=== PATIENT | female | born 1950 | race Caucasian/White ===

== ENCOUNTER 2018-01-29 07:07 | Day surgery (SDC) | payer MEDICARE ==
[~2018-01-29] VITALS: Ht 167.6 cm; Wt 88.3 kg
[~2018-01-29 07:07] MED LIST: CALCA400CH; CRANBERRY250 MG; Hair, Skin & N1 EACH; Loradamed10 MG; Omeprazole20 M1
[2018-04-28] MEDS ORDERED: VITAMIN D-32000 UNIT (12:59)
== END 2018-01-29 11:10 | disposition home or self-care (01) ==
LOC: ORSCSDS 07:07
PROVIDERS: Podiatrist Foot & Ankle Surgery
PROC: 0QSP04Z Reposition Left Metatarsal with Internal Fixation Device, Open Approach (ICD-10-PCS; principal; 2018-01-29 08:30)
PROC: 0SGQ0ZZ (ICD-10-PCS; principal; 2018-01-29 08:30)
PROC: 0SNQ0ZZ Release Left Toe Phalangeal Joint, Open Approach (ICD-10-PCS; principal; 2018-01-29 08:30)
DX: M20.12 Hallux valgus (acquired), left foot (principal); M20.42 Other hammer toe(s) (acquired), left foot; K21.9 Gastro-esophageal reflux disease without esophagitis; Z87.891 Personal history of nicotine dependence; Z79.899 Other long term (current) drug therapy
CPT/HCPCS: C1713; J0690; J2250; J3010; J7120

== ENCOUNTER 2018-10-01 14:36 | Emergency (ER) | payer MEDICARE ==
[~2018-10-01] VITALS: Ht 165.1 cm; Wt 83.9 kg
[~2018-10-01 14:36] MED LIST changes: +VITAMIN D-32000 UNIT
[2018-10-01 15:06] LABS: BASOPHILS ABSOLUTE AUTO 0.06 K/mm3 (0.00-0.23); BASOPHILS PERCENT AUTO 1 % (0-2); EOSINOPHILS ABSOLUTE AUTO 0.24 K/mm3 (0.00-0.68); EOSINOPHILS PERCENT AUTO 3 % (0-6); Hematocrit 41.7 % (33.0-51.0); Hemoglobin 13.3 g/dL (11.5-16.0); IMMATURE GRAN ABSOLUTE AUTO 0.03 K/mm3 (0.00-0.10); IMMATURE GRAN PERCENT AUTO 0 % (0-1); LYMPHOCYTES ABSOLUTE AUTO 3.31 K/mm3 (0.84-5.20); LYMPHOCYTES PERCENT AUTO 42 % (21-46); MONOCYTES PERCENT AUTO 8 % (4-13); Mean Corpuscular HGB 29.2 pg (26.0-34.0); Mean Corpuscular HGB Conc 31.9 g/dL (31.5-36.5); Mean Corpuscular Volume 91 fL (80-100); Mean Platelet Volume 10.2 fL (9.1-12.4); NEUTROPHILS ABSOLUTE AUTO 3.64 K/mm3 (1.96-9.15); NEUTROPHILS PERCENT AUTO 46 % (41-73); Platelet Count 290 K/mm3 (150-400); RDW Coefficient Variation 11.9 % (11.7-14.2); RDW Standard Deviation 40.5 fL (35.1-46.3); Red Blood Cell Count 4.56 M/mm3 (3.80-5.20); White Blood Cell Count 7.88 K/mm3 (4.00-11.30)
[2018-10-01 15:30] LABS: Alanine Aminotransfer (ALT/SGP 20 U/L (12-78); Albumin, Blood 3.6 g/dL (3.4-5.0); Albumin/Globulin Ratio 0.9 (0.8-1.8); Alk Phos 66 U/L (50-136); Anion Gap 10 mmol/L (6-16); Aspartate Aminotrans (AST/SGOT 23 U/L (12-37); Bilirubin, Total 0.3 mg/dL (0.1-1.0); Blood Urea Nitrogen 13 mg/dL (8-24); CO2, Blood 24 mmol/L (21-32); Calcium, Blood 8.8 mg/dL (8.5-10.1); Chloride, Blood 105 mmol/L (98-108); Globulin, Blood 4.1 g/dL (2.2-4.0); Glomerular Filtration Rate 58 (60-); Glucose, Blood 135 mg/dL (70-99); Potassium, Blood 3.8 mmol/L (3.5-5.5); Sodium, Blood 139 mmol/L (136-145); Total Protein, Blood 7.7 g/dL (6.4-8.2); Troponin I <0.015 ng/mL (0.000-0.040)
== END 2018-10-01 16:20 | disposition home or self-care (01) ==
LOC: ER 14:36
PROVIDERS: Emergency Medicine
DX: R07.9 Chest pain, unspecified (principal); Z87.891 Personal history of nicotine dependence; Z79.899 Other long term (current) drug therapy
CPT/HCPCS: 36415; 71046; 80053; 83690; 84484; 85025; 93005; 93010; 99285-25

== ENCOUNTER → 2018-11-26 | Outpatient (CLI) | payer MEDICARE ==
[2018-11-27 14:31] LABS: Stool Occult Bld Immuno 1 Positive (NEGATIVE)
== END | disposition home or self-care (01) ==
LOC: LAB SHORT 18:00 → LAB 18:00 → LAB FUT 11-23 13:10
PROVIDERS: Internal Medicine Gastroenterology
DX: K92.1 Melena (principal)
CPT/HCPCS: 82274

== ENCOUNTER 2019-08-19 06:00 | Day surgery (SDC) | payer MEDICARE ==
[~2019-08-19] VITALS: Ht 167 cm; Wt 78.6 kg
[~2019-08-19 06:00] MED LIST changes: +Bacid1 EACH PO; +CALCIUM PO; +FISH OIL PO; +Hair, Skin & N1 EACH PO; +Loratadine10 MG PO; +OMEPRAZOLE20 MG PO; +TURMERIC PO
--- NOTE | 2019-08-19 06:45 | NUR ---
Ambulatory in Day Surgery History, Chart, Medications and Allergies reviewed before start of procedure.Patient confirms NPO status and agrees with scheduled surgery.
--- NOTE | 2019-08-19 10:03 | NUR ---
PRESCRIPTION GIVEN TO PATIENT'S TO DROP AT [facility].
--- NOTE | 2019-08-19 15:18 | NUR ---
SUMMARY OF CARE: PATIENT ASSISTED TO SIDE OF BED TO GO TO BY ERIK Soto RN. UP SITTING UP PATIENT BECAME LIGHTHEADED AND WAS FOUND TO HAVE A B/P OF 60 SYSTOLIC. PATIENT LAID BACK IN BED AND B/P CYCLED AT 5 MIN INCREMENTS UNTIL B/P ISSUE RESOLVED. ADDITIONALLY INITIALLY WOULD DROP TO 89% AT REST, 02 2 L NC APPLIED AND PATIENT WAS WEANED OFF AND TOLERATING REST AT 95%. DR NOTIFIED, NO NEW ORDERS RECEIVED. PATIENT D/C HOME IN STABLE CONDITION IN THE CARE OF HER .
== END 2019-08-19 15:25 | disposition home or self-care (01) ==
LOC: ORSCMMR 06:00 → ORD 07:30 → ORSCMMR 15:25
PROVIDERS: Surgery
PROC: 06BY0ZC Excision of Hemorrhoidal Plexus, Open Approach (ICD-10-PCS; principal; 2019-08-19 07:30)
DX: K64.8 Other hemorrhoids (principal); K64.4 Residual hemorrhoidal skin tags; K21.9 Gastro-esophageal reflux disease without esophagitis; Z87.891 Personal history of nicotine dependence
CPT/HCPCS: 88304; J0330; J2250; J2405; J2704; J3010; J7120

== ENCOUNTER → 2020-07-22 | Outpatient (CLI) | payer MEDICARE ==
[~2020-07-22] MED LIST changes: +ACET325 PO; +ATROPINE PO; +POTCHL20ER PO; +PRED1 PO; +SIME80CH PO; +TRAM50 PO; +[UNRECOGNIZED DRUG - OTHER] PO
[2020-07-22 18:19] LABS: Adenovirus F 40/41 Not Detected (NOT DETECT); Astrovirus Not Detected (NOT DETECT); Campylobacter Sp Not Detected (NOT DETECT); Cryptosporidium Not Detected (NOT DETECT); Cyclospora Cayetanensis Not Detected (NOT DETECT); E. Coli O157 Not Detected (NOT DETECT); Entamoeba Histolytica Not Detected (NOT DETECT); Enteroaggregative E. coli-EAEC Not Detected (NOT DETECT); Enteropathogenic E. coli-EPEC Not Detected (NOT DETECT); Enterotoxigenic E. coli-ETEC Not Detected (NOT DETECT); Giardia Lamblia Not Detected (NOT DETECT); Norovirus GI/GII Not Detected (NOT DETECT); Plesiomonas Shigelloides Not Detected (NOT DETECT); Rotavirus A Not Detected (NOT DETECT); Salmonella Sp Not Detected (NOT DETECT); Sapovirus Not Detected (NOT DETECT); Shiga Toxin-prod E. coli-STEC Not Detected (NOT DETECT); Shigella/Enteroin E. coli-EIEC Not Detected (NOT DETECT); Vibrio Cholerae Not Detected (NOT DETECT); Vibrio Sp Not Detected (NOT DETECT); Yersinia Enterocolitica Not Detected (NOT DETECT)
== END ==
LOC: LAB EV 13:36 → LAB SHORT 13:36
PROVIDERS: Student in an Organized Health Care Education/Training Program
DX: R19.7 Diarrhea, unspecified (principal)
CPT/HCPCS: 0097U; 83631

== ENCOUNTER 2020-07-24 08:55 | Emergency (ER) | payer MEDICARE ==
[~2020-07-24] VITALS: Ht 165.1 cm; Wt 78.0 kg
[~2020-07-24 08:55] MED LIST changes: -ACET325 PO; -ATROPINE PO; -OMEPRAZOLE20 MG PO; -POTCHL20ER PO; -PRED1 PO; -SIME80CH PO; -TRAM50 PO; -[UNRECOGNIZED DRUG - OTHER] PO
[2020-07-24 10:05] LABS: Hematocrit 40.1 % (33.0-51.0); Hemoglobin 12.7 g/dL (11.5-16.0); Mean Corpuscular HGB 26.2 pg (26.0-34.0); Mean Corpuscular HGB Conc 31.7 g/dL (31.5-36.5); Mean Corpuscular Volume 83 fL (80-100); Mean Platelet Volume 9.2 fL (9.1-12.4); Platelet Count 312 K/mm3 (150-400); RDW Coefficient Variation 13.2 % (11.7-14.2); RDW Standard Deviation 39.7 fL (35.1-46.3); Red Blood Cell Count 4.85 M/mm3 (3.80-5.20); White Blood Cell Count 6.66 K/mm3 (4.00-11.30)
[2020-07-24 10:32] LABS: Alanine Aminotransfer (ALT/SGP 19 U/L (12-78); Albumin, Blood 1.9 g/dL (3.4-5.0); Albumin/Globulin Ratio 0.4 (0.8-1.8); Alk Phos 83 U/L (50-136); Anion Gap 12 mmol/L (6-16); Aspartate Aminotrans (AST/SGOT 15 U/L (12-37); Bilirubin, Total 0.8 mg/dL (0.1-1.0); Blood Urea Nitrogen 12 mg/dL (8-24); Bun/Creatinine Ratio 13.4 (12.0-20.0); CO2, Blood 23 mmol/L (21-32); Calcium, Blood 8.3 mg/dL (8.5-10.1); Chloride, Blood 96 mmol/L (98-108); Globulin, Blood 4.6 g/dL (2.2-4.0); Glomerular Filtration Rate >60 (60-); Glucose, Blood 122 mg/dL (70-99); Potassium, Blood 2.6 mmol/L (3.5-5.5); Sodium, Blood 131 mmol/L (136-145); Total Protein, Blood 6.5 g/dL (6.4-8.2)
[2020-07-24 10:41] LABS: Source, Urine Clean Catch
[2020-07-24 10:46] LABS: BAND PERCENT MAN 29 % (0-8); BASOPHILS PERCENT MAN 0 % (0-2); EOSINOPHILS ABSOLUTE MAN 0.13 K/mm3 (0.00-0.68); EOSINOPHILS PERCENT MAN 2 % (0-6); LYMPHOCYTES ABSOLUTE MAN 0.99 K/mm3 (0.84-5.20); LYMPHOCYTES PERCENT MAN 15 % (21-46); METAMYELOCYTE ABSOLUTE MAN 0.13 K/mm3 (0.00-0.00); METAMYELOCYTE PERCENT MAN 2 % (0-0); MONOCYTES ABSOLUTE MAN 0.46 K/mm3 (0.16-1.47); MONOCYTES PERCENT MAN 7 % (4-13); NEUTROPHILS ABSOLUTE MAN 4.92 K/mm3 (1.96-9.15); SEG NEUTROPHILS PERCENT MAN 45 % (41-73); TOTAL CELLS COUNTED 100
[2020-07-24 10:54] LABS: Blood, Urine 1+ (Neg); Glucose Qualitative, Urine Neg (Neg); Ketones, Urine 3+ (Neg); Leukocyte Esterase, Urine 1+ (Neg); Nitrite, Urine Neg (Neg); Protein, Urine 2+ (Neg); Specific Gravity, Urine 1.015 (1.003-1.022); Urobilinogen, Urine 1+ (Normal)
[2020-07-24 11:01] LABS: Appearance, Urine Clear (Clear); Bilirubin, Urine 1+ (Neg); Color, Urine Amber (P-Yellow)
[2020-07-24 11:06] LABS: Amorphous Light (0-Heavy); Bacteria Mod /hpf; Squamous Epithelial Cells Few /hpf (Few)
[2020-07-24 11:07] LABS: WBC Cast 0-2 /lpf (0)
== END 2020-07-24 14:48 | disposition home or self-care (01) ==
LOC: ER 08:55
PROVIDERS: Emergency Medicine
DX: R19.7 Diarrhea, unspecified (principal); E86.0 Dehydration; E87.6 Hypokalemia; R10.84 Generalized abdominal pain; N18.2 Chronic kidney disease, stage 2 (mild); Z88.0 Allergy status to penicillin; Z88.5 Allergy status to narcotic agent; Z91.02 Food additives allergy status; Z79.899 Other long term (current) drug therapy; Z87.891 Personal history of nicotine dependence
CPT/HCPCS: 36415; 80053; 81001; 83690; 85025; 87077; 87086; 96361; 96365; 96366; 99284-25; A9270; J3480; J7030

== ENCOUNTER 2020-07-27 15:35 | Inpatient (IN) | payer MEDICARE ==
[~2020-07-27] VITALS: Ht 165.1 cm; Wt 78.0 kg
[2020-07-27 16:02] LABS: Hematocrit 36.9 % (33.0-51.0); Mean Corpuscular HGB 25.9 pg (26.0-34.0); Mean Corpuscular HGB Conc 32.5 g/dL (31.5-36.5); Mean Corpuscular Volume 80 fL (80-100); Mean Platelet Volume 8.9 fL (9.1-12.4); Platelet Count 367 K/mm3 (150-400); RDW Coefficient Variation 13.4 % (11.7-14.2); RDW Standard Deviation 38.4 fL (35.1-46.3); Red Blood Cell Count 4.64 M/mm3 (3.80-5.20); White Blood Cell Count 9.75 K/mm3 (4.00-11.30)
[2020-07-27 16:14] LABS: Source, Urine Clean Catch
[2020-07-27 16:18] LABS: Bilirubin, Urine Neg (Neg); Blood, Urine 1+ (Neg); Glucose Qualitative, Urine Neg (Neg); Ketones, Urine Neg (Neg); Leukocyte Esterase, Urine 1+ (Neg); Nitrite, Urine Neg (Neg); Protein, Urine 2+ (Neg); Urobilinogen, Urine 1+ (Normal)
[2020-07-27 16:19] LABS: Alanine Aminotransfer (ALT/SGP 19 U/L (12-78); Albumin, Blood 1.6 g/dL (3.4-5.0); Albumin/Globulin Ratio 0.3 (0.8-1.8); Alk Phos 93 U/L (50-136); Anion Gap 8 mmol/L (6-16); Aspartate Aminotrans (AST/SGOT 19 U/L (12-37); Bilirubin, Total 0.5 mg/dL (0.1-1.0); Blood Urea Nitrogen 9 mg/dL (8-24); Bun/Creatinine Ratio 15.4 (12.0-20.0); CO2, Blood 25 mmol/L (21-32); Calcium, Blood 8.3 mg/dL (8.5-10.1); Chloride, Blood 96 mmol/L (98-108); Creatinine, Blood 0.58 mg/dL (0.40-1.00); Globulin, Blood 4.6 g/dL (2.2-4.0); Glomerular Filtration Rate >60 (60-); Glucose, Blood 130 mg/dL (70-99); Magnesium, Blood 1.9 mg/dL (1.6-2.4); Phosphorus, Blood 1.6 mg/dL (2.5-4.9); Potassium, Blood 2.7 mmol/L (3.5-5.5); Sodium, Blood 129 mmol/L (136-145); Total Protein, Blood 6.2 g/dL (6.4-8.2)
[2020-07-27 16:26] LABS: BAND PERCENT MAN 19 % (0-8); BASOPHILS PERCENT MAN 0 % (0-2); EOSINOPHILS ABSOLUTE MAN 0.39 K/mm3 (0.00-0.68); EOSINOPHILS PERCENT MAN 4 % (0-6); LYMPHOCYTES ABSOLUTE MAN 1.46 K/mm3 (0.84-5.20); LYMPHOCYTES PERCENT MAN 15 % (21-46); MONOCYTES ABSOLUTE MAN 0.29 K/mm3 (0.16-1.47); MONOCYTES PERCENT MAN 3 % (4-13); SEG NEUTROPHILS PERCENT MAN 59 % (41-73); TOTAL CELLS COUNTED 100
[2020-07-27 16:29] LABS: Appearance, Urine Clear (Clear); Color, Urine Yellow (P-Yellow)
[2020-07-27 16:31] LABS: Bacteria Few /hpf; Red Blood Cells, Urine 0-2 /hpf (0-2); Squamous Epithelial Cells Few /hpf (Few)
[2020-07-27 16:41] LABS: Thyroid Stimulating Hormone 2.67 uIU/mL (0.360-4.800); Triiodothyronine, Free 0.87 pg/mL (2.18-3.98)
[2020-07-27] MEDS ORDERED: OMEPRAZOLE20 MG PO (17:14)
[2020-07-27] MEDS ORDERED: [UNRECOGNIZED DRUG - OTHER] PO (17:18)
[2020-07-27] MEDS ORDERED: ATROPINE PO (17:18)
--- NOTE | 2020-07-27 20:12 | NUR ---
ADMIT NOTE 70 YR OLD FEMALE ADMITTED TO UNIT FROM THE ED WITH DIARRHEA. IVF INFUSING. ANTIBIOTICS ORDERED - MED TELE SINUS RHYTHM 91. ORIENTED TO USE OF CALL LIGHT. CALL LIGHT IN REACH. RAILS UP X 3
--- NOTE | 2020-07-27 21:30 | NUR ---
LACTIC ACID CALLED TO [employer] BASIS CONSULTANT - SEE ORDERS
--- NOTE | 2020-07-27 21:57 | NUR ---
LACTIC ACID ELEVATED, LAB TECHNICIAN NOTIFIED, NS NOW AT BOLUS RATE. CALL LIGHT IN REACH
[2020-07-28 00:57] LABS: Anion Gap 8 mmol/L (6-16); Blood Urea Nitrogen 9 mg/dL (8-24); CO2, Blood 25 mmol/L (21-32); Calcium, Blood 7.9 mg/dL (8.5-10.1); Chloride, Blood 98 mmol/L (98-108); Creatinine, Blood 0.75 mg/dL (0.40-1.00); Glomerular Filtration Rate >60 (60-); Glucose, Blood 134 mg/dL (70-99); Potassium, Blood 2.6 mmol/L (3.5-5.5); Sodium, Blood 131 mmol/L (136-145)
--- NOTE | 2020-07-28 01:29 | NUR ---
LACTIC ACID TRENDING DOWN. CHARGE NURSE NOTIFIED. WILL CONTINUE TO MONITOR
--- NOTE | 2020-07-28 01:36 | NUR ---
PTS SISTER "KATIE" CALLED RE CONDITION/UPDATE. PT ALLOWED INFO TRANSFER - WILL CALL BACK AROUND 10 AM. # [phone].
[2020-07-28 04:47] LABS: Hematocrit 30.4 % (33.0-51.0); Hemoglobin 9.7 g/dL (11.5-16.0); Mean Corpuscular HGB 25.7 pg (26.0-34.0); Mean Corpuscular HGB Conc 31.9 g/dL (31.5-36.5); Mean Corpuscular Volume 81 fL (80-100); Mean Platelet Volume 9.4 fL (9.1-12.4); Platelet Count 261 K/mm3 (150-400); RDW Coefficient Variation 13.3 % (11.7-14.2); RDW Standard Deviation 39.7 fL (35.1-46.3); Red Blood Cell Count 3.77 M/mm3 (3.80-5.20); White Blood Cell Count 7.17 K/mm3 (4.00-11.30)
[2020-07-28 05:05] LABS: Anion Gap 10 mmol/L (6-16); Blood Urea Nitrogen 8 mg/dL (8-24); Bun/Creatinine Ratio 11.3 (12.0-20.0); CO2, Blood 23 mmol/L (21-32); Calcium, Blood 7.5 mg/dL (8.5-10.1); Chloride, Blood 99 mmol/L (98-108); Creatinine, Blood 0.71 mg/dL (0.40-1.00); Glomerular Filtration Rate >60 (60-); Glucose, Blood 123 mg/dL (70-99); Magnesium, Blood 1.8 mg/dL (1.6-2.4); Phosphorus, Blood 2.6 mg/dL (2.5-4.9); Potassium, Blood 2.8 mmol/L (3.5-5.5); Sodium, Blood 132 mmol/L (136-145)
[2020-07-28 05:09] LABS: BAND PERCENT MAN 37 % (0-8); BASOPHILS PERCENT MAN 0 % (0-2); EOSINOPHILS ABSOLUTE MAN 0.07 K/mm3 (0.00-0.68); EOSINOPHILS PERCENT MAN 1 % (0-6); LYMPHOCYTES ABSOLUTE MAN 0.21 K/mm3 (0.84-5.20); LYMPHOCYTES PERCENT MAN 3 % (21-46); MONOCYTES ABSOLUTE MAN 0.35 K/mm3 (0.16-1.47); MONOCYTES PERCENT MAN 5 % (4-13); MYELOCYTE ABSOLUTE MAN 0.07 K/mm3 (0.00-0.00); MYELOCYTE PERCENT MAN 1 % (0-0); NEUTROPHILS ABSOLUTE MAN 6.45 K/mm3 (1.96-9.15); SEG NEUTROPHILS PERCENT MAN 53 % (41-73); TOTAL CELLS COUNTED 100
--- NOTE | 2020-07-28 18:32 | NUR ---
SHIFT SUMMARY PT A/O X4; PLEASANT AND COOPERATIVE. PT VERY DROWSY FOR MOST OF THE DAY AND HAS REQUESTED TO SLEEP. SHE IS A SBA TO THE BATHROOM AND HAS HAD MANY LIQUID STOOLS TODAY. COLONOSCOPY SCHEDULED FOR TOMORROW. PT IS NPO AT MIDNIGHT. BOWEL PREP STARTED AT 1800. PT HAS ALSO BEEN GETTING IV POTASSIUM TODAY. IV POTASSIUM RUNNING AT SLOWER RATE DUE TO VEIN IRRITATION. VSS; WILL CONTINUE TO MONITOR.
--- NOTE | 2020-07-29 04:39 | NUR ---
AUTOMATION TESTER SUMMARY PT ALERT AND ORIENTED, COOPERATIVE WITH CARE. USES CALL LIGHT APPROPRIATELY. UP TO BSC WITH STANDBY ASSIST. SHE HAS BEEN DRINKING GOLYTELY T/O SHIFT AND WAS UNABLE TO GET MUCH SLEEP. RAPID COVID TEST WAS COMPLETED FOR PENDING COLONOSCOPY TODAY, WHICH WAS NEGATIVE. NO ACUTE DISTRESS NOTED. VSS. BED IN LOWEST POSITION WITH CALL LIGHT IN REACH. WILL CONTINUE TO MONITOR AND REPORT TO ONCOMING RN.
--- NOTE | 2020-07-29 11:39 | NUR ---
Patient states colon prep results clear. History, Chart, Medications and Allergies reviewed before start of procedure. Lungs clear T/O to Auscultation. Patient confirms NPO status and agrees with scheduled surgery. Pre-Op teaching done. Pt verbalizes understanding.
--- NOTE | 2020-07-29 11:58 | NUR ---
07/29/20 1158 Deepti Mancera History, Chart, Medications and Allergies reviewed before start of procedure.PATIENT DETERMINED TO BE ASA APPROPRIATE FOR PROPOFOL SEDATION PRIOR TO START OF PROCEDURE BY .MONITOR INTACT WITH CONTINUOUS PULSE OXIMETRY AND INTERMITTENT BP.3-LEAD EKG REVIEWED WITH PHYSICIAN PRIOR TO START OF PROCEDURE.O2 VIA N/C INTACT THROUGHOUT SEDATION/PROCEDURE.
--- NOTE | 2020-07-29 19:22 | NUR ---
SHIFT SUMAMRY: NO ACUTE CHANGES TO REPORT THIS SHIFT. PT A&O; CALM AND COOPERATIVE WITH CARE. COLONOSCOPY THIS SHIFT; PT TOLERATED WELL; IV STEROIDS STARTED; DIET ADVANCED TO FULL LIQUID. TELE IN PLACE; SR IN 90s. IV ABX D/C'd; NS + 20 MEQ KCL CONTINUING. REPORT GIVEN TO ONCOMING RN.
--- NOTE | 2020-07-29 23:44 | NUR ---
RN TO RN PATIENT TRANSFER. ROOM 353 TO 335. REPORT TAKEN FROM RAFAEL MEJIA. PATIENT TRANSFER COMPLETE.
--- NOTE | 2020-07-30 03:54 | NUR ---
SHIFT SUMMARY PATIENT TRANSFER FROM ROOM 353 AND HAD NO ACUTE CHANGES OBSERVED. AXO X3 AND SBA TO BSC. PIV REMAINS INTACT. KCL 20 MEQ INFUSING AT 125 mL/HR. SAFETY ASSOCIATE REPORTS NSR 85. VSS/AFEBRILE. DENIES PAIN, SOB, AND N/V. [place] PRECAUTIONS TO R/O TB. PATIENT MOSTLY SLEEPING SINCE TRANSFER. CALL LIGHT IN REACH. BED IN LOWEST POSITION. WILL CONTINUE TO MONITOR UNTIL DAY SHIFT NURSE ASSUMES CARE.
[2020-07-30 11:33] LABS: Hematocrit 30.5 % (33.0-51.0); Hemoglobin 9.8 g/dL (11.5-16.0); Mean Corpuscular HGB 26.2 pg (26.0-34.0); Mean Corpuscular HGB Conc 32.1 g/dL (31.5-36.5); Mean Corpuscular Volume 82 fL (80-100); Mean Platelet Volume 9.6 fL (9.1-12.4); Platelet Count 219 K/mm3 (150-400); RDW Coefficient Variation 13.6 % (11.7-14.2); Red Blood Cell Count 3.74 M/mm3 (3.80-5.20)
[2020-07-30 12:00] LABS: Alanine Aminotransfer (ALT/SGP 17 U/L (12-78); Albumin, Blood 1.4 g/dL (3.4-5.0); Albumin/Globulin Ratio 0.4 (0.8-1.8); Alk Phos 70 U/L (50-136); Anion Gap 7 mmol/L (6-16); Aspartate Aminotrans (AST/SGOT 11 U/L (12-37); BAND PERCENT MAN 9 % (0-8); BASOPHILS PERCENT MAN 0 % (0-2); Bilirubin, Total 0.3 mg/dL (0.1-1.0); Blood Urea Nitrogen 6 mg/dL (8-24); Bun/Creatinine Ratio 9.3 (12.0-20.0); CO2, Blood 20 mmol/L (21-32); Calcium, Blood 7.7 mg/dL (8.5-10.1); Chloride, Blood 109 mmol/L (98-108); Creatinine, Blood 0.64 mg/dL (0.40-1.00); EOSINOPHILS PERCENT MAN 0 % (0-6); Globulin, Blood 3.7 g/dL (2.2-4.0); Glomerular Filtration Rate >60 (60-); Glucose, Blood 222 mg/dL (70-99); LYMPHOCYTES ABSOLUTE MAN 0.68 K/mm3 (0.84-5.20); LYMPHOCYTES PERCENT MAN 19 % (21-46); MONOCYTES ABSOLUTE MAN 0.18 K/mm3 (0.16-1.47); MONOCYTES PERCENT MAN 5 % (4-13); NEUTROPHILS ABSOLUTE MAN 2.73 K/mm3 (1.96-9.15); Potassium, Blood 3.3 mmol/L (3.5-5.5); SEG NEUTROPHILS PERCENT MAN 67 % (41-73); Sodium, Blood 136 mmol/L (136-145); TOTAL CELLS COUNTED 100; Total Protein, Blood 5.1 g/dL (6.4-8.2)
--- NOTE | 2020-07-30 16:28 | NUR ---
SHIFT SUMMARY PATIENT IS ALERT AND ORIENTED, INDEPENDENT IN THE ROOM. PATIENT HAD ORAL POTASSIUM AND HAS BEEN STARTED ON GLIPIZIDE WELL NOW HAS BLOOD SUGARS ORDERED. SHE DENIES ANY CURRENT CONCERN MINUS THE PAIN IN HER BELLY. SHE STATES THAT THE TRAMADOL HELPS WITH THE ABDOMINAL CRAMPING. SHE ATE A SOFT LUNCH AND HAD NO NAUSEA OR VOMITING.
--- NOTE | 2020-07-31 00:16 | NUR ---
DR CARTWRIGHT called about low blood glucose with poor oral intake. She stops IV fluid & glucotrol & rx give 1/2 amp D50. PT taking some oral but declined to continue with much & blood glucose only 67.
--- NOTE | 2020-07-31 03:24 | NUR ---
PT continues with loose stools pink tinged, new dx IBS ulcerative colitis after colonoscopy. PT on IV steroids & MD started glucophage but had hypoglycemia with oral intake raising BG to 71 then drifting back down. BG recheck 57 2nd /2 amp d50 given & notified DR Granado. Alert up indep in room with steady gait. On tele monitor NSR with PVCS. DR Granado orders 1 amp D50 Glucophage has been DC. Taking oral puddings drank less than 50% ensure. Will recheck blood glucose.
[2020-07-31 06:20] LABS: Anion Gap 5 mmol/L (6-16); Blood Urea Nitrogen 7 mg/dL (8-24); Bun/Creatinine Ratio 12.4 (12.0-20.0); CO2, Blood 22 mmol/L (21-32); Calcium, Blood 7.8 mg/dL (8.5-10.1); Chloride, Blood 107 mmol/L (98-108); Creatinine, Blood 0.56 mg/dL (0.40-1.00); Glomerular Filtration Rate >60 (60-); Glucose, Blood 103 mg/dL (70-99); Potassium, Blood 3.9 mmol/L (3.5-5.5); Sodium, Blood 134 mmol/L (136-145)
[2020-07-31 08:07] LABS: HBSAG SCREEN Negative (Negative)
[2020-07-31] MEDS ORDERED: ACET325 PO (13:32)
[2020-07-31] MEDS ORDERED: POTCHL20ER PO (13:33)
[2020-07-31] MEDS ORDERED: SIME80CH PO (13:35)
[2020-07-31] MEDS ORDERED: TRAM50 PO (13:36)
[2020-07-31] MEDS ORDERED: PRED1 PO (13:40)
--- NOTE | 2020-07-31 14:37 | NUR ---
DISCHARGE DISCHARGED HOME WITH . AND PT VERBALIZED UNDERSTANDING OF DISCHARGE INSTRUCTIONS AND FOLLOW-UP APPOINTMENTS. TEACHBACK METHOD UTILIZED AND ALL QUESTIONS ANSWERED. ALL PERSONAL BELONGINGS IN PT/ POSSESSION AT TIME OF DISCHARGE. RX'S FAXED TO [facility] CHOICE, [facility].
== END 2020-07-31 14:26 | disposition home or self-care (01) | DRG 385 ==
LOC: ER 15:35 → MEDS 19:35 → ENPENDDIS 07-30 15:33 → MEDS 07-31 14:26
PROVIDERS: Emergency Medicine; Internal Medicine; Nurse Practitioner Acute Care; Physician Assistant; Student in an Organized Health Care Education/Training Program; ADMIT Internal Medicine
PROC: 0DBE8ZX Excision of Large Intestine, Via Natural or Artificial Opening Endoscopic, Diagnostic (ICD-10-PCS; principal; 2020-07-29 10:00)
DX: K51.90 Ulcerative colitis, unspecified, without complications (principal); E43 Unspecified severe protein-calorie malnutrition; D62 Acute posthemorrhagic anemia; E87.1 Hypo-osmolality and hyponatremia; E87.2 Acidosis; E87.6 Hypokalemia; E83.39 Other disorders of phosphorus metabolism; K21.9 Gastro-esophageal reflux disease without esophagitis; E86.0 Dehydration; I95.9 Hypotension, unspecified; E66.9 Obesity, unspecified; Z68.28 Body mass index [BMI] 28.0-28.9, adult; R73.9 Hyperglycemia, unspecified; T38.0X5A Adverse effect of glucocorticoids and synthetic analogues, initial encounter; Y92.230 Patient room in hospital as the place of occurrence of the external cause; R82.81 Pyuria; E86.9 Volume depletion, unspecified
CPT/HCPCS: 36415; 74176; 80048; 80053; 81001; 82947; 83605; 83690; 83735; 84100; 84132; 84443; 84481; 85025; 85651; 86140; 86317; 87015; 87040; 87045; 87046; 87086; 87177; 87205; 87209; 87340; 87899; 88305; 96361; 96365; 96366; 99284-25; A9270; A9270-GY; J0744; J1650; J2704; J2920; J3480; J7030; J7060; J7120; U0002

== ENCOUNTER 2021-01-26 09:43 | Day surgery (SDC) | payer MEDICARE ==
[~2021-01-26] VITALS: Ht 165.1 cm; Wt 79.2 kg
[~2021-01-26 09:43] MED LIST changes: +ACET325 PO; +ACIDOPHILUS PR1 EAC2 PO; +ATROPINE PO; +ENTYVIO300 M1 IV; +IMODIUM A-D2 M1 PO; +MESALAMINE PO; +OMEPRAZOLE20 MG PO; +POTCHL20ER PO; +PRED1 PO; +SIME80CH PO; +TRAM50 PO; +[UNRECOGNIZED DRUG - OTHER] PO
--- NOTE | 2021-01-26 10:24 | NUR ---
01/26/21 1024 ADELE NARVAEZ ONE ATTEMPT BY THOMAS IN RH ONE SUCCESSFUL BY THOMAS IN RFA PT TOW
== END 2021-01-26 11:46 | disposition home or self-care (01) ==
LOC: ORSCSDS 09:43
PROVIDERS: Internal Medicine Gastroenterology
PROC: 0DBE8ZX Excision of Large Intestine, Via Natural or Artificial Opening Endoscopic, Diagnostic (ICD-10-PCS; principal; 2021-01-26 11:00)
DX: K51.90 Ulcerative colitis, unspecified, without complications (principal); Z79.899 Other long term (current) drug therapy; K21.9 Gastro-esophageal reflux disease without esophagitis; K57.30 Diverticulosis of large intestine without perforation or abscess without bleeding; K64.1 Second degree hemorrhoids; Z87.891 Personal history of nicotine dependence
CPT/HCPCS: 88305; J2704; J7120

== ENCOUNTER → 2021-08-10 | Outpatient (CLI) | payer MEDICARE ==
[2021-08-10 12:53] LABS: BASOPHILS ABSOLUTE AUTO 0.04 K/mm3 (0.00-0.23); BASOPHILS PERCENT AUTO 0 % (0-2); EOSINOPHILS ABSOLUTE AUTO 0.04 K/mm3 (0.00-0.68); EOSINOPHILS PERCENT AUTO 0 % (0-6); Hematocrit 41.8 % (33.0-51.0); IMMATURE GRAN ABSOLUTE AUTO 0.07 K/mm3 (0.00-0.10); IMMATURE GRAN PERCENT AUTO 1 % (0-1); LYMPHOCYTES ABSOLUTE AUTO 0.89 K/mm3 (0.84-5.20); LYMPHOCYTES PERCENT AUTO 6 % (21-46); MONOCYTES ABSOLUTE AUTO 1.11 K/mm3 (0.16-1.47); MONOCYTES PERCENT AUTO 7 % (4-13); Mean Corpuscular HGB 28.6 pg (26.0-34.0); Mean Corpuscular HGB Conc 33.5 g/dL (31.5-36.5); Mean Corpuscular Volume 85 fL (80-100); Mean Platelet Volume 11.1 fL (9.1-12.4); NEUTROPHILS ABSOLUTE AUTO 13.02 K/mm3 (1.96-9.15); NEUTROPHILS PERCENT AUTO 86 % (41-73); Platelet Count 167 K/mm3 (150-400); RDW Coefficient Variation 13.2 % (11.7-14.2); White Blood Cell Count 15.17 K/mm3 (4.00-11.30)
[2021-08-10 12:57] LABS: Bun/Creatinine Ratio 15.7 (12.0-20.0); Calcium, Blood 8.8 mg/dL (8.5-10.1); Creatinine, Blood 2.16 mg/dL (0.40-1.00); Potassium, Blood 4.1 mmol/L (3.5-5.5)
== END | disposition home or self-care (01) ==
LOC: LAB 12:48 → LAB SHORT 12:48
PROVIDERS: Physician Assistant Surgical
DX: N39.0 Urinary tract infection, site not specified (principal); R53.83 Other fatigue
CPT/HCPCS: 80048; 85025; 87077; 87086; 87186

== ENCOUNTER → 2022-02-21 | Outpatient (CLI) | payer MEDICARE | END | disposition home or self-care (01) | LOC: LAB SHORT 11:03 | DX: D22.39 Melanocytic nevi of other parts of face (principal) | CPT/HCPCS: 88305 ==

== ENCOUNTER → 2022-03-25 | Outpatient (CLI) | payer MEDICARE | LOC: LAB SHORT 17:05 → LAB 17:05 | DX: R30.0 Dysuria (principal) | CPT/HCPCS: 87086 ==

== ENCOUNTER → 2022-04-10 | Outpatient (CLI) | payer MEDICARE ==
[2022-04-10 21:01] LABS: Percent Saturation 20.7 % (15.0-50.0)
[2022-04-10 21:11] LABS: Albumin, Blood 3.7 g/dL (3.4-5.0); Albumin/Globulin Ratio 1.1 (0.8-1.8); Bilirubin, Total 0.5 mg/dL (0.1-1.0); Calcium, Blood 9.6 mg/dL (8.5-10.1); Globulin, Blood 3.4 g/dL (2.2-4.0); Phosphorus, Blood 3.6 mg/dL (2.5-4.9); Potassium, Blood 4.6 mmol/L (3.5-5.5); Total Protein, Blood 7.1 g/dL (6.4-8.2)
== END | disposition home or self-care (01) ==
LOC: LAB 10:20 → LAB SHORT 10:20
PROVIDERS: Internal Medicine Hematology & Oncology
DX: K51.018 Ulcerative (chronic) pancolitis with other complication (principal); E53.8 Deficiency of other specified B group vitamins
CPT/HCPCS: 80053; 82607; 82728; 82746; 83540; 83550; 84100

== ENCOUNTER → 2022-10-10 | Outpatient (CLI) | payer MEDICARE ==
[2022-10-11 18:20] LABS: Campylobacter Sp Not Detected (NOT DETECT)
[2022-10-11 18:21] LABS: Adenovirus F 40/41 Not Detected (NOT DETECT); Astrovirus Not Detected (NOT DETECT); Cryptosporidium Not Detected (NOT DETECT); Cyclospora Cayetanensis Not Detected (NOT DETECT); E. Coli O157 Not Detected (NOT DETECT); Entamoeba Histolytica Not Detected (NOT DETECT); Enteroaggregative E. coli-EAEC Not Detected (NOT DETECT); Enteropathogenic E. coli-EPEC Detected (NOT DETECT); Enterotoxigenic E. coli-ETEC Not Detected (NOT DETECT); Giardia Lamblia Not Detected (NOT DETECT); Norovirus GI/GII Not Detected (NOT DETECT); Plesiomonas Shigelloides Not Detected (NOT DETECT); Rotavirus A Not Detected (NOT DETECT); Salmonella Sp Not Detected (NOT DETECT); Sapovirus Not Detected (NOT DETECT); Shiga Toxin-prod E. coli-STEC Not Detected (NOT DETECT); Shigella/Enteroin E. coli-EIEC Not Detected (NOT DETECT); Vibrio Cholerae Not Detected (NOT DETECT); Vibrio Sp Not Detected (NOT DETECT); Yersinia Enterocolitica Not Detected (NOT DETECT)
== END | disposition home or self-care (01) ==
LOC: LAB SHORT 14:04 → LAB 14:04 → LAB SHORT 10-11 13:59
PROVIDERS: Student in an Organized Health Care Education/Training Program
DX: K51.018 Ulcerative (chronic) pancolitis with other complication (principal)
CPT/HCPCS: 83993; 87324; 87507

== ENCOUNTER → 2022-12-26 | Outpatient (CLI) | payer MEDICARE ==
[2022-12-26 14:49] LABS: Adenovirus F 40/41 Not Detected (NOT DETECT); Astrovirus Not Detected (NOT DETECT); Campylobacter Sp Not Detected (NOT DETECT); Cryptosporidium Not Detected (NOT DETECT); Cyclospora Cayetanensis Not Detected (NOT DETECT); E. Coli O157 Not Detected (NOT DETECT); Entamoeba Histolytica Not Detected (NOT DETECT); Enteroaggregative E. coli-EAEC Not Detected (NOT DETECT); Enteropathogenic E. coli-EPEC Not Detected (NOT DETECT); Enterotoxigenic E. coli-ETEC Not Detected (NOT DETECT); Giardia Lamblia Not Detected (NOT DETECT); Norovirus GI/GII Not Detected (NOT DETECT); Plesiomonas Shigelloides Not Detected (NOT DETECT); Rotavirus A Not Detected (NOT DETECT); Salmonella Sp Not Detected (NOT DETECT); Sapovirus Not Detected (NOT DETECT); Shiga Toxin-prod E. coli-STEC Not Detected (NOT DETECT); Shigella/Enteroin E. coli-EIEC Not Detected (NOT DETECT); Vibrio Cholerae Not Detected (NOT DETECT); Vibrio Sp Not Detected (NOT DETECT); Yersinia Enterocolitica Not Detected (NOT DETECT)
== END | disposition home or self-care (01) ==
LOC: LAB SHORT 09:20 → LAB 09:20
PROVIDERS: Student in an Organized Health Care Education/Training Program
DX: K51.00 Ulcerative (chronic) pancolitis without complications (principal)
CPT/HCPCS: 83993; 87507

== ENCOUNTER → 2023-02-22 | Outpatient (CLI) | payer MEDICARE ==
[~2023-02-22] MED LIST changes: +CENTRUM SILVER1 EAC2; +VITAMIN B125000 MC1; +Vitamin D1000 UNI1
== END | disposition home or self-care (01) ==
LOC: LAB SHORT 14:30 → LAB 14:30
DX: M54.9 Dorsalgia, unspecified (principal)
CPT/HCPCS: 87086

== ENCOUNTER → 2023-06-04 | Outpatient (CLI) | payer MEDICARE ==
[2023-06-04 14:31] LABS: Albumin, Blood 3.5 g/dL (3.4-5.0); Albumin/Globulin Ratio 1.2 (0.8-1.8); Bilirubin, Total 0.4 mg/dL (0.1-1.0); Bun/Creatinine Ratio 14.2 (12.0-20.0); Calcium, Blood 8.9 mg/dL (8.5-10.1); Creatinine, Blood 0.99 mg/dL (0.40-1.00); Globulin, Blood 2.9 g/dL (2.2-4.0); Phosphorus, Blood 3.3 mg/dL (2.5-4.9); Potassium, Blood 4.2 mmol/L (3.5-5.5); Total Protein, Blood 6.4 g/dL (6.4-8.2)
== END | disposition home or self-care (01) ==
LOC: LAB SHORT 10:20 → LAB 10:20
PROVIDERS: Internal Medicine Hematology & Oncology
DX: K51.018 Ulcerative (chronic) pancolitis with other complication (principal)
CPT/HCPCS: 80053; 84100

== ENCOUNTER 2023-08-08 00:17 | Day surgery (SDC) | payer MEDICARE ==
[2023-08-08 14:10] VITALS: BP 140/71
== END 2023-08-08 15:30 | disposition home or self-care (01) ==
LOC: ATC 00:17
DX: K51.00 Ulcerative (chronic) pancolitis without complications (principal); K21.9 Gastro-esophageal reflux disease without esophagitis; M19.90 Unspecified osteoarthritis, unspecified site; K64.1 Second degree hemorrhoids
CPT/HCPCS: 96365; J3380; J7050

== ENCOUNTER 2023-09-03 02:32 | Day surgery (SDC) | payer MEDICARE ==
[2023-09-03 14:49] VITALS: BP 139/73
== END 2023-09-03 16:09 | disposition home or self-care (01) ==
LOC: ATC 02:32
DX: K51.00 Ulcerative (chronic) pancolitis without complications (principal); M19.90 Unspecified osteoarthritis, unspecified site; K21.9 Gastro-esophageal reflux disease without esophagitis
CPT/HCPCS: 96365; J3380; J7050

== ENCOUNTER 2023-09-22 09:23 | Observation (INO) | payer MEDICARE ==
[~2023-09-22] VITALS: Ht 163 cm; Wt 73.9 kg
[~2023-09-22 09:23] MED LIST changes: -CENTRUM SILVER1 EAC2; +CENTRUM SILVER1 EAC2 PO; -VITAMIN B125000 MC1; +VITAMIN B125000 MC1 PO; -Vitamin D1000 UNI1; +Vitamin D1000 UNI1 PO
[2023-09-22 09:47] LABS: BASOPHILS ABSOLUTE AUTO 0.07 K/mm3 (0.00-0.23); BASOPHILS PERCENT AUTO 1 % (0-2); EOSINOPHILS ABSOLUTE AUTO 0.28 K/mm3 (0.00-0.68); EOSINOPHILS PERCENT AUTO 3 % (0-6); Hematocrit 44.2 % (33.0-51.0); Hemoglobin 14.4 g/dL (11.5-16.0); IMMATURE GRAN ABSOLUTE AUTO 0.03 K/mm3 (0.00-0.10); IMMATURE GRAN PERCENT AUTO 0 % (0-1); LYMPHOCYTES ABSOLUTE AUTO 1.46 K/mm3 (0.84-5.20); LYMPHOCYTES PERCENT AUTO 17 % (21-46); MONOCYTES PERCENT AUTO 7 % (4-13); Mean Corpuscular HGB 28.9 pg (26.0-34.0); Mean Corpuscular HGB Conc 32.6 g/dL (31.5-36.5); Mean Corpuscular Volume 89 fL (80-100); Mean Platelet Volume 9.9 fL (9.1-12.4); NEUTROPHILS ABSOLUTE AUTO 6.24 K/mm3 (1.96-9.15); NEUTROPHILS PERCENT AUTO 72 % (41-73); Platelet Count 256 K/mm3 (150-400); RDW Coefficient Variation 13.1 % (11.7-14.2); RDW Standard Deviation 42.7 fL (35.1-46.3); Red Blood Cell Count 4.98 M/mm3 (3.80-5.20); White Blood Cell Count 8.68 K/mm3 (4.00-11.30)
[2023-09-22] MEDS ORDERED: ESCI10 PO (09:50)
[2023-09-22 10:31] LABS: Albumin, Blood 3.1 g/dL (3.4-5.0); Albumin/Globulin Ratio 0.7 (0.8-1.8); Bilirubin, Total 0.6 mg/dL (0.1-1.0); Bun/Creatinine Ratio 11.7 (12.0-20.0); Calcium, Blood 9.9 mg/dL (8.5-10.1); Creatinine, Blood 0.94 mg/dL (0.40-1.00); Globulin, Blood 4.6 g/dL (2.2-4.0); Potassium, Blood 3.8 mmol/L (3.5-5.5); Total Protein, Blood 7.7 g/dL (6.4-8.2)
[2023-09-22 17:20] VITALS: BP 125/71
--- NOTE | 2023-09-22 17:25 | NUR ---
PT ARRIVED TO ROOM AT 1710 AOX4 AND COOPERATIVE OF CARE. PT WAS ABLE TO COME UP IN WHEEL CHAIR AND AMBULATE TO BED. PT DENIES CHEST PAIN AT THIS TIME. WILL CONTINUE TO MONITOR.
[2023-09-22 19:11] VITALS: BP 114/67
[2023-09-23 04:53] VITALS: BP 113/67
[2023-09-23 05:44] LABS: BASOPHILS ABSOLUTE AUTO 0.04 K/mm3 (0.00-0.23); BASOPHILS PERCENT AUTO 1 % (0-2); EOSINOPHILS ABSOLUTE AUTO 0.23 K/mm3 (0.00-0.68); EOSINOPHILS PERCENT AUTO 3 % (0-6); Hematocrit 37.9 % (33.0-51.0); Hemoglobin 12.6 g/dL (11.5-16.0); IMMATURE GRAN ABSOLUTE AUTO 0.01 K/mm3 (0.00-0.10); IMMATURE GRAN PERCENT AUTO 0 % (0-1); LYMPHOCYTES ABSOLUTE AUTO 1.27 K/mm3 (0.84-5.20); LYMPHOCYTES PERCENT AUTO 16 % (21-46); MONOCYTES ABSOLUTE AUTO 0.48 K/mm3 (0.16-1.47); MONOCYTES PERCENT AUTO 6 % (4-13); Mean Corpuscular HGB Conc 33.2 g/dL (31.5-36.5); Mean Corpuscular Volume 87 fL (80-100); Mean Platelet Volume 10.2 fL (9.1-12.4); NEUTROPHILS ABSOLUTE AUTO 6.18 K/mm3 (1.96-9.15); NEUTROPHILS PERCENT AUTO 75 % (41-73); Platelet Count 261 K/mm3 (150-400); RDW Coefficient Variation 13.1 % (11.7-14.2); RDW Standard Deviation 41.8 fL (35.1-46.3); Red Blood Cell Count 4.35 M/mm3 (3.80-5.20); White Blood Cell Count 8.21 K/mm3 (4.00-11.30)
--- NOTE | 2023-09-23 05:53 | NUR ---
SUMMARY: PT A/OX4, IS INDEPENDENT AND CALLS APPROPRIATELY TO SPECIFY NEEDS. SHE'S DENIED CP, N/V, DIZZINESS AND ALL OTHER S/S CARDIAC DISTRESS. PT REMAINS ON TELE IN NSR AT 60'S-80'S BPM. SCD'S INTACT, RESPS E/U, SHE'S CONTINENT TO BATHROOM AND SPO2 IS WNL ON RA. NO ACUTE CHANGES, VSS/AFEBRILE. WCTM AND REPORT TO DAY RN.
[2023-09-23 06:28] LABS: Albumin, Blood 2.9 g/dL (3.4-5.0); Albumin/Globulin Ratio 0.7 (0.8-1.8); Bilirubin, Total 0.5 mg/dL (0.1-1.0); Bun/Creatinine Ratio 17.5 (12.0-20.0); Calcium, Blood 9.2 mg/dL (8.5-10.1); Creatinine, Blood 0.97 mg/dL (0.40-1.00); Globulin, Blood 4.1 g/dL (2.2-4.0); Potassium, Blood 4.1 mmol/L (3.5-5.5)
[2023-09-23 07:12] VITALS: BP 119/70
[2023-09-23] MEDS ORDERED: CEFP200 PO (14:01)
--- NOTE | 2023-09-23 14:55 | NUR ---
DISCHARGE SUMMARY: PT DISCHARGED HOME. PT EDUCATED ON DISCHARGE MEDICATIONS AND INSTRUCTIONS. PT VU. PT ESCORTED TO PATIENT ENTRANCE AND PT REQUESTED TO WAIT FOR HER RIDE AT ENTRANCE. PT HAD BELONGINGS WITH HER.
== END 2023-09-23 14:22 | disposition home or self-care (01) ==
LOC: ER 09:23 → MEDS 09:24 → EDBEDREQ 15:26 → MEDS 17:04
PROVIDERS: Physician Assistant; ADMIT Internal Medicine
DX: R07.89 Other chest pain (principal); K21.9 Gastro-esophageal reflux disease without esophagitis; F32.A Depression, unspecified; J44.9 Chronic obstructive pulmonary disease, unspecified; N18.2 Chronic kidney disease, stage 2 (mild); R61 Generalized hyperhidrosis; Z66 Do not resuscitate; Z88.0 Allergy status to penicillin; Z88.5 Allergy status to narcotic agent; Z87.891 Personal history of nicotine dependence
CPT/HCPCS: 36415; 71046; 71260; 80053; 83036; 83690; 84484; 85025; 93005; 93010; 93306; 96372; 99285-25; A9270; G0378; J1650; Q9967

== ENCOUNTER → 2023-10-03 | Outpatient (CLI) | payer MEDICARE ==
[~2023-10-03] MED LIST changes: +CEFP200 PO; +ESCI10 PO
== END | disposition home or self-care (01) ==
LOC: LAB 10:05 → LAB SHORT 10:05
DX: J18.9 Pneumonia, unspecified organism (principal)
CPT/HCPCS: 87070; 87205

== ENCOUNTER 2023-10-06 00:26 | Day surgery (SDC) | payer MEDICARE ==
--- NOTE | 2023-10-01 12:17 | NUR ---
PT ARRIVED IN CLINIC AND WHEN THIS RN WAS ASKING INFECTION/WELLNESS QUESTIONS SHE STATES THAT SHE JUST GOT OFF ANTIBIOTICS A FEW DAYS AGO AND SHE STATES THAT SHE HAS PNEUMONIA AND COUGHING. PT SCHEDULED INFUSION FOR NEXT WEEK
[2023-10-06 14:32] VITALS: BP 139/80
== END 2023-10-06 15:48 | disposition home or self-care (01) ==
LOC: ATC 00:26
DX: K51.00 Ulcerative (chronic) pancolitis without complications (principal); K21.9 Gastro-esophageal reflux disease without esophagitis; Z88.5 Allergy status to narcotic agent; Z88.0 Allergy status to penicillin; Z79.899 Other long term (current) drug therapy
CPT/HCPCS: 96365; J3380; J7050

== ENCOUNTER 2023-11-03 03:33 | Day surgery (SDC) | payer MEDICARE ==
[2023-11-03 13:36] VITALS: BP 149/68
--- NOTE | 2023-11-03 15:30 | NUR ---
END TIME: 1523
== END 2023-11-03 14:54 | disposition home or self-care (01) ==
LOC: ATC 03:33
DX: K51.00 Ulcerative (chronic) pancolitis without complications (principal); K21.9 Gastro-esophageal reflux disease without esophagitis; M19.90 Unspecified osteoarthritis, unspecified site; N18.30 Chronic kidney disease, stage 3 unspecified; Z79.899 Other long term (current) drug therapy; Z88.5 Allergy status to narcotic agent; Z88.0 Allergy status to penicillin
CPT/HCPCS: 96365; J3380; J7050

== ENCOUNTER 2023-12-02 00:37 | Day surgery (SDC) | payer MEDICARE, OTHER ==
[2023-12-02 14:05] VITALS: BP 144/85
[2023-12-02] MEDS ORDERED: ENTYVIO300 M1 IV (14:23)
== END 2023-12-02 15:24 | disposition home or self-care (01) ==
LOC: ATC 00:37
DX: K51.00 Ulcerative (chronic) pancolitis without complications (principal); K21.9 Gastro-esophageal reflux disease without esophagitis; M19.90 Unspecified osteoarthritis, unspecified site
CPT/HCPCS: 96374; J3380; J7050

== ENCOUNTER → 2024-01-06 | Outpatient (CLI) | payer MEDICARE, OTHER ==
[2024-01-09 12:11] LABS: CALPROTECTIN,FECAL 84 ug/g (<=49)
== END ==
LOC: LAB 11:29 → LAB SHORT 11:29
PROVIDERS: Physician Assistant Medical
DX: K51.00 Ulcerative (chronic) pancolitis without complications (principal)
CPT/HCPCS: 83993

== ENCOUNTER → 2024-01-21 | Outpatient (CLI) | payer MEDICARE, OTHER | END | disposition home or self-care (01) | LOC: LAB SHORT 15:55 | DX: M79.604 Pain in right leg (principal) | CPT/HCPCS: 85379 ==

== ENCOUNTER 2024-03-23 02:34 | Day surgery (SDC) | payer MEDICARE, OTHER ==
[~2024-03-23 02:34] MED LIST changes: +TURMERIC500 M2; +ZOLEDRONIC ACID
[2024-03-23] MEDS ORDERED: Vedolizumab 300 MG in NS 250 ML IV SCH (06:00)
[2024-03-23 14:15] VITALS: BP 140/77
== END 2024-03-23 15:36 | disposition home or self-care (01) ==
LOC: ATC 02:34
DX: K51.00 Ulcerative (chronic) pancolitis without complications (principal); Z79.899 Other long term (current) drug therapy; Z88.5 Allergy status to narcotic agent; Z88.0 Allergy status to penicillin
CPT/HCPCS: 96365; J3380; J7050

== ENCOUNTER 2024-05-18 00:50 | Day surgery (SDC) | payer MEDICARE, OTHER ==
[2024-05-18] MEDS ORDERED: Vedolizumab 300 MG in NS 250 ML IV SCH (06:00)
[2024-05-18 13:53] VITALS: BP 117/69
== END 2024-05-18 15:04 | disposition home or self-care (01) ==
LOC: ATC 00:50
DX: K51.00 Ulcerative (chronic) pancolitis without complications (principal); K64.8 Other hemorrhoids; K21.9 Gastro-esophageal reflux disease without esophagitis
CPT/HCPCS: 96365; J3380; J7050

== ENCOUNTER 2024-06-15 03:33 | Day surgery (SDC) | payer MEDICARE, OTHER ==
[2024-06-15 14:00] VITALS: BP 133/79
[2024-06-15] MEDS ORDERED: Vedolizumab 300 MG in NS 250 ML IV SCH (14:15)
== END 2024-06-15 15:07 | disposition home or self-care (01) ==
LOC: ATC 03:33
DX: K51.00 Ulcerative (chronic) pancolitis without complications (principal); Z79.899 Other long term (current) drug therapy; Z88.0 Allergy status to penicillin; Z88.5 Allergy status to narcotic agent
CPT/HCPCS: 96365; J3380; J7050

== ENCOUNTER 2024-07-14 05:49 | Day surgery (SDC) | payer MEDICARE, OTHER ==
[2024-07-14] MEDS ORDERED: Vedolizumab 300 MG in NS 250 ML IV SCH (06:00)
[2024-07-14 10:09] VITALS: BP 139/61
== END 2024-07-14 11:10 | disposition home or self-care (01) ==
LOC: ATC 05:49
DX: K51.00 Ulcerative (chronic) pancolitis without complications (principal)
CPT/HCPCS: 96365; J3380; J7050

== ENCOUNTER 2024-08-10 03:10 | Day surgery (SDC) | payer MEDICARE, OTHER ==
[~2024-08-10 03:10] MED LIST changes: +Children's Clari5 MG PO; -TURMERIC500 M2; +TURMERIC500 M2 PO
[2024-08-10] MEDS ORDERED: Vedolizumab 300 MG in NS 250 ML IV SCH (06:00)
[2024-08-10 10:06] VITALS: BP 136/80
== END 2024-08-10 11:22 | disposition home or self-care (01) ==
LOC: ATC 03:10
DX: K51.00 Ulcerative (chronic) pancolitis without complications (principal); K64.1 Second degree hemorrhoids; N18.30 Chronic kidney disease, stage 3 unspecified; Z88.5 Allergy status to narcotic agent; Z88.0 Allergy status to penicillin; Z79.899 Other long term (current) drug therapy
CPT/HCPCS: 96365; J3380; J7050

== ENCOUNTER 2024-08-24 07:35 | Day surgery (SDC) | payer MEDICARE, OTHER ==
[~2024-08-24] VITALS: Ht 162.6 cm; Wt 80.8 kg
[2024-08-24] VITALS (11 sets, daily range): BP systolic 101–130; BP diastolic 61–95
[2024-08-24] MEDS ORDERED: Tranexamic Acid 100 ML IV SCH (07:50)
[2024-08-24] MEDS ORDERED: Chlorhexidine Mouth Care 15 ML UDC MT SCH (07:50)
[2024-08-24] MEDS ORDERED: CeFAZolin Sodium 2,000 MG in NS 100 ML IV SCH ×2 (07:50→18:10)
[2024-08-24] MEDS ORDERED: Ropivacaine 0.5% HCl/Pf 123.125 MG,EPINEPHrine HCL 0.25 MG,Ketorolac Tromethamine 15 MG... INFIL SCH (07:50)
[2024-08-24] MEDS ORDERED: Acetaminophen 500 MG Tab PO SCH ×2 (07:50→16:00)
[2024-08-24] MEDS ORDERED: Lactated Ringer's 1,000 ML IV SCH ×2 (07:50→11:05)
--- NOTE | 2024-08-24 08:17 | NUR ---
History, Chart, Medications and Allergies reviewed before start of procedure. Patient confirms NPO status and agrees with scheduled surgery. Patient's belongings stored in labeled bag and placed under patient's gurney for safe keeping. Patient's friend, Anand, at bedside.
[2024-08-24] MEDS ORDERED: propofoL 20 ML IV ONE (08:41)
--- NOTE | 2024-08-24 09:22 | NUR ---
PATIENT DECLINES OXYCODONE ORDERED DUE TO ALLERGY/ADVERSE REACTION TO OXYCODONE IN PAST.
[2024-08-24] MEDS ORDERED: Midazolam HCl 1MG / ML 2ML Vial IV SCH (09:50)
[2024-08-24] MEDS ORDERED: Midazolam HCl 1MG / ML 2ML Vial ONE (09:52)
[2024-08-24] MEDS ORDERED: Dexamethasone Sod Phos 10 MG/ML 1ML VIAL ONE (10:12)
[2024-08-24] MEDS ORDERED: Ondansetron HCl 2 MG / ML 2ML Vial ONE (10:12)
[2024-08-24] MEDS ORDERED: propofoL 50 ML IV ONE (10:13)
[2024-08-24] MEDS ORDERED: Metoclopramide HCl 5MG / ML 2ML Vial IV PRN (10:35)
[2024-08-24] MEDS ORDERED: ePHEDrine Sulfate 50 MG/ML 1ML Injection ONE (10:35)
[2024-08-24] MEDS ORDERED: Bisacodyl 10 MG Supp PR PRN (10:35)
[2024-08-24] MEDS ORDERED: Promethazine HCl 25 MG Tab PO PRN (10:35)
[2024-08-24] MEDS ORDERED: Ondansetron HCl 2 MG / ML 2ML Vial IV PRN (10:35)
[2024-08-24] MEDS ORDERED: HYDROmorphone HCl/Pf 1MG SYR IV PRN (10:40)
[2024-08-24] MEDS ORDERED: FLU VACC TS2024-25(6MOS UP)/PF 45 MCG/0.5 ML SYRINGE IM SCH (10:40)
[2024-08-24] MEDS ORDERED: DiphenhydrAMINE HCL 25 MG Cap PO PRN (10:40)
[2024-08-24] MEDS ORDERED: Magnesium Hydroxide Conc 10 ML UDC PO PRN (11:05)
[2024-08-24] MEDS ORDERED: HYDROcodone 5-APAP 325 TAB PO PRN (12:45)
[2024-08-24] MEDS ORDERED: ELIQUIS2.5 MG PO (15:48)
--- NOTE | 2024-08-24 16:33 | NUR ---
DISCHARGE PT HAS WORKED w/ THERAPY. PAIN WELL CONTROLLED. EATING, DRINKING, & VOIDING WELL. CHRISTIAN & KETTY SYKES SENT w/ PT. ESCORTED OUT VIA W/C.
[2024-08-24] MEDS ORDERED: Ketorolac Tromethamine 15mg Vial IV SCH (18:00)
[2024-08-24] MEDS ORDERED: Docusate Sodium 100 MG Cap PO SCH (21:00)
[2024-08-25] MEDS ORDERED: Omeprazole 20 MG CapCR PO SCH (06:00)
[2024-08-25] MEDS ORDERED: Cyanocobalamin 500 MCG Tab PO SCH (09:00)
[2024-08-25] MEDS ORDERED: Multivitamins/Minerals 1 Tab PO SCH (09:00)
[2024-08-25] MEDS ORDERED: Citalopram Hydrobromide 10 MG TAB PO SCH (09:00)
[2024-08-25] MEDS ORDERED: Cholecalciferol 1000 Unit Tablet (=25MCG) PO SCH (09:00)
[2024-08-25] MEDS ORDERED: Lactobacil 2-S.Thermo-Bifido 1 1 Cap PO SCH (09:00)
[2024-08-25] MEDS ORDERED: Apixaban 5 MG Tab PO SCH (09:00)
[2024-08-25] MEDS ORDERED: Loratadine 10 MG Tab PO SCH (09:00)
== END 2024-08-24 16:21 | disposition home or self-care (01) ==
LOC: ORSCMMR 07:35 → ORD 09:15 → ORSCMMR 09:15 → SURS 12:27 → ORSCMMR 16:21
PROVIDERS: Orthopaedic Surgery
PROC: 0SRC0JA Replacement of Right Knee Joint with Synthetic Substitute, Uncemented, Open Approach (ICD-10-PCS; principal; 2024-08-24 09:15)
PROC: 8E0Y0CZ Robotic Assisted Procedure of Lower Extremity, Open Approach (ICD-10-PCS; principal; 2024-08-24 09:15)
DX: M17.11 Unilateral primary osteoarthritis, right knee (principal); N18.30 Chronic kidney disease, stage 3 unspecified; F32.A Depression, unspecified; F41.9 Anxiety disorder, unspecified; E66.9 Obesity, unspecified; Z68.30 Body mass index [BMI] 30.0-30.9, adult; Z79.899 Other long term (current) drug therapy; Z87.891 Personal history of nicotine dependence
CPT/HCPCS: 73560-RT; 97110; 97116; 97161; 97530; A9270; C1713; C1776; J0171; J0690; J0735; J1100; J1885; J2250; J2405; J2704; J2795; J7120

== ENCOUNTER → 2024-08-30 | Outpatient (CLI) | payer MEDICARE, OTHER ==
[~2024-08-30] MED LIST changes: +ELIQUIS2.5 MG PO
[2024-09-01 14:42] LABS: CALPROTECTIN,FECAL 73 ug/g (<=49)
== END | disposition home or self-care (01) ==
LOC: LAB 16:25 → LAB SHORT 16:25
PROVIDERS: Physician Assistant Medical
DX: K51.00 Ulcerative (chronic) pancolitis without complications (principal)
CPT/HCPCS: 83993

== ENCOUNTER 2024-09-06 02:05 | Day surgery (SDC) | payer MEDICARE, OTHER ==
[2024-09-06] MEDS ORDERED: Vedolizumab 300 MG in NS 250 ML IV SCH (06:00)
[2024-09-06 14:48] VITALS: BP 138/74
== END 2024-09-06 16:00 | disposition home or self-care (01) ==
LOC: ATC 02:05
DX: K51.00 Ulcerative (chronic) pancolitis without complications (principal)
CPT/HCPCS: 96365; J3380; J7050

== ENCOUNTER 2024-11-02 03:20 | Day surgery (SDC) | payer MEDICARE, OTHER ==
[2024-11-02] MEDS ORDERED: Vedolizumab 300 MG in NS 250 ML IV SCH (06:00)
[2024-11-02 14:42] VITALS: BP 129/76
== END 2024-11-02 15:40 | disposition home or self-care (01) ==
LOC: ATC 03:20
DX: K51.00 Ulcerative (chronic) pancolitis without complications (principal); K21.9 Gastro-esophageal reflux disease without esophagitis; N18.30 Chronic kidney disease, stage 3 unspecified; Z79.899 Other long term (current) drug therapy; Z88.0 Allergy status to penicillin; Z88.5 Allergy status to narcotic agent; Z90.49 Acquired absence of other specified parts of digestive tract
CPT/HCPCS: 96365; J3380; J7050

== ENCOUNTER 2024-11-30 07:04 | Day surgery (SDC) | payer MEDICARE, OTHER ==
[~2024-11-30 07:04] MED LIST changes: +Vedolizumab 300 MG in NS 250 ML IV SCH
[2024-11-30 13:49] VITALS: BP 130/64
== END 2024-11-30 15:15 | disposition home or self-care (01) ==
LOC: ATC 07:04
DX: K51.00 Ulcerative (chronic) pancolitis without complications (principal); K21.9 Gastro-esophageal reflux disease without esophagitis
CPT/HCPCS: 96365; J3380; J7050

== ENCOUNTER 2024-12-27 07:45 | Day surgery (SDC) | payer MEDICARE, OTHER ==
[2024-12-27 10:15] VITALS: BP 141/75
== END 2024-12-27 11:59 | disposition home or self-care (01) ==
LOC: ATC 07:45
DX: K51.00 Ulcerative (chronic) pancolitis without complications (principal); Z79.899 Other long term (current) drug therapy; Z88.5 Allergy status to narcotic agent; Z88.0 Allergy status to penicillin
CPT/HCPCS: 96365; J3380; J7050

== ENCOUNTER 2025-01-24 01:41 | Day surgery (SDC) | payer MEDICARE, OTHER ==
[~2025-01-24 01:41] MED LIST changes: -Vedolizumab 300 MG in NS 250 ML IV SCH
[2025-01-24 09:50] VITALS: BP 125/71
[2025-01-24] MEDS ORDERED: Vedolizumab 300 MG in NS 250 ML IV SCH (10:10)
== END 2025-01-24 11:09 | disposition home or self-care (01) ==
LOC: ATC 01:41
DX: K51.00 Ulcerative (chronic) pancolitis without complications (principal); K64.1 Second degree hemorrhoids; K21.9 Gastro-esophageal reflux disease without esophagitis; Z79.899 Other long term (current) drug therapy; Z88.0 Allergy status to penicillin; Z88.5 Allergy status to narcotic agent
CPT/HCPCS: 96365; J3380; J7050

== ENCOUNTER 2025-02-21 00:17 | Day surgery (SDC) | payer MEDICARE, OTHER ==
[2025-02-21] MEDS ORDERED: Vedolizumab 300 MG in NS 250 ML IV SCH (06:00)
[2025-02-21 10:09] VITALS: BP 132/59
== END 2025-02-21 11:01 | disposition home or self-care (01) ==
LOC: ATC 00:17
DX: K51.00 Ulcerative (chronic) pancolitis without complications (principal); K21.9 Gastro-esophageal reflux disease without esophagitis; N18.30 Chronic kidney disease, stage 3 unspecified; Z79.899 Other long term (current) drug therapy; Z88.5 Allergy status to narcotic agent; Z88.0 Allergy status to penicillin; Z90.49 Acquired absence of other specified parts of digestive tract
CPT/HCPCS: 96365; J3380; J7050

== ENCOUNTER → 2025-03-08 | Outpatient (CLI) | payer MEDICARE, OTHER ==
[2025-03-08 14:46] LABS: Campylobacter Sp Not Detected (NOT DETECT); Enteroaggregative E. coli-EAEC Not Detected (NOT DETECT); Enteropathogenic E. coli-EPEC Not Detected (NOT DETECT); Enterotoxigenic E. coli-ETEC Not Detected (NOT DETECT); Plesiomonas Shigelloides Not Detected (NOT DETECT); Salmonella Sp Not Detected (NOT DETECT); Shiga Toxin-prod E. coli-STEC Not Detected (NOT DETECT); Vibrio Cholerae Not Detected (NOT DETECT); Vibrio Sp Not Detected (NOT DETECT); Yersinia Enterocolitica Not Detected (NOT DETECT)
[2025-03-08 14:47] LABS: Adenovirus F 40/41 Not Detected (NOT DETECT); Astrovirus Not Detected (NOT DETECT); Cryptosporidium Not Detected (NOT DETECT); Cyclospora Cayetanensis Not Detected (NOT DETECT); E. Coli O157 Not Detected (NOT DETECT); Entamoeba Histolytica Not Detected (NOT DETECT); Giardia Lamblia Not Detected (NOT DETECT); Norovirus GI/GII Not Detected (NOT DETECT); Rotavirus A Not Detected (NOT DETECT); Sapovirus Not Detected (NOT DETECT); Shigella/Enteroin E. coli-EIEC Not Detected (NOT DETECT)
[2025-03-10 16:29] LABS: CALPROTECTIN,FECAL 652 ug/g (<=49)
== END | disposition home or self-care (01) ==
LOC: LAB SHORT 03-07 12:22 → LAB 12:24 → LAB SHORT 12:24
PROVIDERS: Physician Assistant Medical
DX: K51.00 Ulcerative (chronic) pancolitis without complications (principal); R19.7 Diarrhea, unspecified
CPT/HCPCS: 83993; 87507

== ENCOUNTER 2025-03-16 08:18 | Day surgery (SDC) | payer MEDICARE, OTHER ==
[~2025-03-16] VITALS: Ht 165.1 cm; Wt 81.6 kg
[~2025-03-16 08:18] MED LIST changes: +Lactated Ringer's 1,000 ML IV ONE; +propofoL 50 ML IV ONE
[2025-03-16] MEDS ORDERED: Lactated Ringer's 1,000 ML IV ONE (08:51)
[2025-03-16 10:44] VITALS: BP 108/82
== END 2025-03-16 10:51 | disposition home or self-care (01) ==
LOC: ORSCSDS 08:18
PROVIDERS: Specialist
PROC: 0DBP8ZX Excision of Rectum, Via Natural or Artificial Opening Endoscopic, Diagnostic (ICD-10-PCS; principal; 2025-03-16 09:45)
PROC: 0DB58ZX Excision of Esophagus, Via Natural or Artificial Opening Endoscopic, Diagnostic (ICD-10-PCS; principal; 2025-03-16 09:45)
PROC: 0DBE8ZX Excision of Large Intestine, Via Natural or Artificial Opening Endoscopic, Diagnostic (ICD-10-PCS; principal; 2025-03-16 09:45)
DX: K51.90 Ulcerative colitis, unspecified, without complications (principal); R09.A2 Foreign body sensation, throat; D12.2 Benign neoplasm of ascending colon; K44.9 Diaphragmatic hernia without obstruction or gangrene; Z86.0101 Personal history of adenomatous and serrated colon polyps; K57.30 Diverticulosis of large intestine without perforation or abscess without bleeding; Z79.899 Other long term (current) drug therapy
CPT/HCPCS: 88305; J2704; J7120

== ENCOUNTER 2025-03-21 08:40 | Day surgery (SDC) | payer MEDICARE, OTHER ==
[~2025-03-21 08:40] MED LIST changes: -Lactated Ringer's 1,000 ML IV ONE; +Vedolizumab 300 MG in NS 250 ML IV SCH; -propofoL 50 ML IV ONE
[2025-03-21 15:05] VITALS: BP 116/74
== END 2025-03-21 16:06 | disposition home or self-care (01) ==
LOC: ATC 08:40
DX: K51.00 Ulcerative (chronic) pancolitis without complications (principal); K64.1 Second degree hemorrhoids; K21.9 Gastro-esophageal reflux disease without esophagitis; Z79.899 Other long term (current) drug therapy; Z88.0 Allergy status to penicillin; Z88.5 Allergy status to narcotic agent
CPT/HCPCS: 96365; J3380; J7050

== ENCOUNTER 2025-06-14 01:06 | Day surgery (SDC) | payer MEDICARE, OTHER ==
[~2025-06-14 01:06] MED LIST changes: -Vedolizumab 300 MG in NS 250 ML IV SCH
[2025-06-14 15:15] VITALS: BP 131/79
== END 2025-06-14 16:20 | disposition home or self-care (01) ==
LOC: ATC 01:06
DX: K51.00 Ulcerative (chronic) pancolitis without complications (principal); N18.30 Chronic kidney disease, stage 3 unspecified; K21.9 Gastro-esophageal reflux disease without esophagitis; Z79.899 Other long term (current) drug therapy; Z88.5 Allergy status to narcotic agent; Z88.0 Allergy status to penicillin
CPT/HCPCS: 96365; J3380; J7050

== ENCOUNTER 2025-07-11 01:49 | Day surgery (SDC) | payer MEDICARE, OTHER ==
[2025-07-11 10:01] VITALS: BP 130/62
== END 2025-07-11 11:32 | disposition home or self-care (01) ==
LOC: ATC 01:49
DX: K51.00 Ulcerative (chronic) pancolitis without complications (principal); Z88.5 Allergy status to narcotic agent; Z88.0 Allergy status to penicillin; Z79.899 Other long term (current) drug therapy
CPT/HCPCS: 96365; J3380; J7050

== ENCOUNTER 2025-08-09 02:45 | Day surgery (SDC) | payer MEDICARE, OTHER ==
[2025-08-09 10:21] VITALS: BP 142/75
== END 2025-08-09 12:10 | disposition home or self-care (01) ==
LOC: ATC 02:45
DX: K51.00 Ulcerative (chronic) pancolitis without complications (principal); K21.9 Gastro-esophageal reflux disease without esophagitis; Z88.0 Allergy status to penicillin; Z88.5 Allergy status to narcotic agent; Z79.899 Other long term (current) drug therapy; Z90.49 Acquired absence of other specified parts of digestive tract
CPT/HCPCS: 96365; J3380; J7050

== ENCOUNTER 2025-08-30 01:10 | Day surgery (SDC) | payer MEDICARE, OTHER ==
[2025-08-30 09:58] VITALS: BP 127/71
== END 2025-08-30 09:52 | disposition home or self-care (01) ==
LOC: ATC 01:10
DX: K51.00 Ulcerative (chronic) pancolitis without complications (principal); K21.9 Gastro-esophageal reflux disease without esophagitis; Z88.5 Allergy status to narcotic agent; Z88.0 Allergy status to penicillin; Z79.899 Other long term (current) drug therapy
CPT/HCPCS: J3380; J7050

== ENCOUNTER 2025-09-27 01:08 | Day surgery (SDC) | payer MEDICARE, OTHER ==
[2025-09-27 09:55] VITALS: BP 149/94
== END 2025-09-27 11:03 | disposition home or self-care (01) ==
LOC: ATC 01:08
DX: K51.00 Ulcerative (chronic) pancolitis without complications (principal)
CPT/HCPCS: 96365; 96413; 96415; J3380; J7050

== ENCOUNTER 2025-10-25 02:40 | Day surgery (SDC) | payer MEDICARE, OTHER ==
[2025-10-25 10:02] VITALS: BP 149/74
== END 2025-10-25 11:19 | disposition home or self-care (01) ==
LOC: ATC 02:40
DX: K51.00 Ulcerative (chronic) pancolitis without complications (principal); K21.9 Gastro-esophageal reflux disease without esophagitis; I42.2 Other hypertrophic cardiomyopathy
CPT/HCPCS: 96413; J3380; J7050